=== PATIENT | female | born 1985 | race Caucasian/White ===

== ENCOUNTER → 2018-02-15 | Outpatient (CLI) | payer OTHER | END | disposition home or self-care (01) | LOC: C.LAB 03:29 | DX: Z02.83 Encounter for blood-alcohol and blood-drug test (principal) ==

== ENCOUNTER 2021-10-12 16:33 | Inpatient (IN) ==
[2021-10-12] MEDS ORDERED: SODIUM CHLORIDE 0.9% 1000ML 1,000 ML IV SCH ×2 (16:45→23:06)
--- NOTE | 2021-10-12 17:04 | Emergency Department Note ---
Impression & Plan Dissection of vertebral artery, Blurred vision, Headache ED Provider Note NAME: HEBERT GERMAIN AGE: 36 SEX: F : 1985 ARRIVES VIA: Ambulance INFORMANT: Patient ED PROVIDER(S): Michele Bingham DO CHIEF COMPLAINT: syncope HPI: Patient is a 36-year-old female with no past medical history the presents the ER for syncopal event. Patient notes that she was at work walking out to the sales floor and started feeling dizzy and lightheaded. Next thing she knew she woke up on the floor. Coworker states that she was out for several minutes. When she woke up she knew where she was but was slightly confused. She denies biting her tongue or loss of control of bowel or bladder. Denies any headache or change in vision prior to the event. No chest pain or shortness of breath preceding the incident. She notes that last night she did go out drinking and normally does not do this. She drank more than usual. No belly pain. No dysuria, urgency, or frequency. Currently has her menstrual period. When she woke up she did have a diffuse headache. She has been having right-sided neck pain in the back for the past 2 weeks. Is worse with twisting turning bending. Has been improving. No weakness or numbness in her arms or legs. No other exacerbating remitting factors. She notes that she does have some blurriness of her vision out of her right eye. She did have some in her left eye initially and now switch. ROS: See above HPI for pertinent positives & negatives. A total of 10 systems reviewed and were otherwise negative. PAST MEDICAL HISTORY:See Below PAST SURGICAL HISTORY:See Below FAMILY HISTORY:See Below SOCIAL HISTORY:See Below HOME MEDICATIONS:See Below ALLERGIES:See Below VITALS:See Below PHYSICAL EXAMINATION: GENERAL: Sitting up in bed, alert, well appearing, well nourished, no distress, non-toxic EYE EXAM: normal conjunctiva. PERRL and EOM's grossly intact. OROPHARYNX: no exudate, no erythema, lips, buccal mucosa, and tongue normal and mucous membranes are moist NECK: supple, no nuchal rigidity, no adenopathy, non-tender LUNGS: Clear to auscultation. Normal chest wall mechanics HEART: no murmurs, S1 normal and S2 normal ABDOMEN: abdomen soft, non-tender, normo-active bowel sounds, no masses, no rebound or guarding. BACK: Back is symmetrical on inspection and there is no deformity, no midline tenderness, no CVA tenderness. SKIN: no rashes and no bruising UPPER EXTREMITIES: upper extremities are grossly normal. LOWER EXTREMITIES: No pitting edema. NEURO EXAM: Normal sensorium, cranial nerves II-XII intact, normal speech, no weakness of arms, no weakness of legs. No drift. Finger to nose intact. Gross se nsation intact. MEDICAL DECISION MAKING: Patient is a 28-year-old female who presents the ER for headache and neck pain along with a syncopal episode. IV was established blood was obtained. Labs show no significant leukocytosis or anemia. BMP with mild hypokalemia 3.2. LFTs bilirubin was unremarkable. Troponin was negative. TSH and hCG were negative. Alcohol negative. Covid was negative. CT as well as CTA of the head and neck shows a right vertebral artery dissection. She is completely neurologically intact but did have some blurry vision in the left eye which resolved and now a little bit in her right eye. Discussed with Dr. Ozuna from [facility] neurology. Agrees with aspirin and observation/admission here. Patient was given morphine and Zofran. She was updated bedside. She is given fluids. Discussed with hospitalist admitted for further work-up. Triage Nursing notes reviewed. Limited review of prior medical records performed Vital Signs: reviewed and remarkable for HTN Differential diagnosis: Differential Diagnosis includes but is not limited to ischemic Stroke, hemorrhagic stroke, bells palsy, mass, neoplasm, migraine headache, seizure, subarachnoid hemorrhage, TIA, and transient global amnesia. ER treatment provided: See below Diagnostics interpreted by me: ECG: Sinus rhythm rate 81 Normal axis No PVCs T wave inversion in septal rates Cardiac Monitoring: An order was placed for continuous cardiac monitoring. The monitor shows a rate of 80 with sinus rhythm. Laboratory studies: As stated above and show below. Imaging studies: CT angios the head neck shows dissection Consultation(s): Discussed with neurology as stated above Discussed with hospitalist for further evaluation Dr. Shane Procedures: none Critical Care: None Past Med/Surg History Medical History No pertinent past medical history Social History Smoking Status: Current every day smoker Tobacco Type: Cigarettes Feels Safe at Home: Yes Allergies Allergies Allergy/AdvReac Type Severity Reaction Status Date / Time No Known Allergies Allergy Unknown Unverified 10/12/21 20:03 Home Meds Home Medications Medication Instructions Recorded Confirmed ibuprofen 200 mg tablet 800 mg PO BID PRN 03/11/21 10/12/21 Diarrhea Tab 1 tab PO UD PRN 10/12/21 10/12/21 bismuth subsalicylate 262 mg 2 tab PO QID PRN 10/12/21 10/12/21 chewable tablet (Pepto-Bismol) calcium carbonate 200 mg calcium 400 mg PO BID PRN 10/12/21 10/12/21 (500 mg) chewable tablet (Tums) famotidine 20 mg tablet 20 mg PO DAILY PRN 10/12/21 10/12/21 Results & Data (ED) Vital Signs Vital Signs - 24 hr 10/12/21 16:40 10/12/21 18:35 10/12/21 19:30 Temperature 36.7 C Temperature Source Temporal Artery Scan Pulse Rate 97 H 85 Pulse Rate [Right Finger] 88 Respiratory Rate 18 18 18 Respiratory Effort / Characteristics Non-Labored Spontaneous Respiratory Depth Normal Respiratory Pattern Regular Blood Pressure 150/85 H Blood Pressure [Right Arm] 131/81 Blood Pressure Mean 106 Blood Pressure Mean [Right Arm] 97 Blood Pressure Position Sitting Pulse Oximetry 98 99 98 Oxygen Delivery Method Room Air Room Air Room Air Sepsis Recent Fever Within 48 Hours No Sepsis New/Unexplained Change in Mental Status N/A Sepsis Action Taken by Nursing No Action Required Pulse Oximetry Post Tiitration 98 Laboratory Data Result diagrams: 10/12/21 16:55 10/12/21 16:55 Lab Results 10/12/21 10/12/21 10/12/21 Range/Units 16:55 16:55 16:55 WBC 7.49 (4.8-10.8) K/uL RBC 4.04 L (4.2-5.4) M/uL Hgb 13.2 (12.0-16.0) g/dL Hct 38.8 (37-47) % MCV 96.0 (80-100) fL MCH 32.7 (25-34) pg MCHC 34.0 (32-36) g/dL RDW Std Deviation 43.1 (36.4-46.3) fL RDW Coeff of Carlos 12.2 (11.5-14.5) % Plt Count 277 (130-400) K/uL MPV 11.2 H (7.4-10.4) fL Immature Gran % (Auto) 0.1 % Neut % (Auto) 71.5 % Lymph % (Auto) 19.9 % [place] % (Auto) 6.8 % Eos % (Auto) 1.2 % Baso % (Auto) 0.5 % Neut # (Auto) 5.35 (1.4-6.5) K/uL Lymph # (Auto) 1.49 (1.2-3.4) K/uL [place] # (Auto) 0.51 (0.11-0.59) K/uL Eos # (Auto) 0.09 (0-0.5) K/uL Baso # (Auto) 0.04 (0-0.2) K/uL Immature Gran # (Auto) 0.01 (0.00-0.02) K/uL Sodium 139 (136-145) mmol/L Potassium 3.2 L (3.5-5.1) mmol/L Chloride 104 (98-107) mmol/L Carbon Dioxide 28 (21-32) mmol/L Anion Gap 7.0 (3-11) BUN 18 (7-18) mg/dl Creatinine 0.83 (0.6-1.2) mg/dl Est Cr Clr Drug Dosing 89.4 ml/min Est GFR ( Amer) 103.7 ml/min Est GFR (Non-Af Amer) 89.5 ml/min BUN/Creatinine Ratio 22.0 H (10-20) Glucose 93 (70-99) mg/dl Calcium 9.4 (8.5-10.1) mg/dl Magnesium 2.0 (1.8-2.4) mg/dl Total Bilirubin 0.5 (0.2-1) mg/dl AST 33 (15-37) U/L ALT 48 (12-78) Alkaline Phosphatase 62 (45-117) U/L Troponin I < 0.015 (0-0.045) ng/ml Total Protein 8.3 H (6.4-8.2) gm/dl Albumin 4.2 (3.4-5.0) gm/dl Globulin 4.1 H (2.5-4.0) gm/dl Albumin/Globulin Ratio 1.0 (0.9-2) TSH 1.820 (0.300-4.500) uIu/ml HCG, Qual Negative (Negative) Ethyl Alcohol mg/dL (0-3) mg/dl SARS-CoV-2, RNA, NAAT (NEGATIVE) 10/12/21 10/12/21 Range/Units 17:32 18:50 WBC (4.8-10.8) K/uL RBC (4.2-5.4) M/uL Hgb (12.0-16.0) g/dL Hct (37-47) % MCV (80-100) fL MCH (25-34) pg MCHC (32-36) g/dL RDW Std Deviation (36.4-46.3) fL RDW Coeff of Carlos (11.5-14.5) % Plt Count (130-400) K/uL MPV (7.4-10.4) fL Immature Gran % (Auto) % Neut % (Auto) % Lymph % (Auto) % [place] % (Auto) % Eos % (Auto) % Baso % (Auto) % Neut # (Auto) (1.4-6.5) K/uL Lymph # (Auto) (1.2-3.4) K/uL [place] # (Auto) (0.11-0.59) K/uL Eos # (Auto) (0-0.5) K/uL Baso # (Auto) (0-0.2) K/uL Immature Gran # (Auto) (0.00-0.02) K/uL Sodium (136-145) mmol/L Potassium (3.5-5.1) mmol/L Chloride (98-107) mmol/L Carbon Dioxide (21-32) mmol/L Anion Gap (3-11) BUN (7-18) mg/dl Creatinine (0.6-1.2) mg/dl Est Cr Clr Drug Dosing ml/min Est GFR ( Amer) ml/min Est GFR (Non-Af Amer) ml/min BUN/Creatinine Ratio (10-20) Glucose (70-99) mg/dl Calcium (8.5-10.1) mg/dl Magnesium (1.8-2.4) mg/dl Total Bilirubin (0.2-1) mg/dl AST (15-37) U/L ALT (12-78) Alkaline Phosphatase (45-117) U/L Troponin I (0-0.045) ng/ml Total Protein (6.4-8.2) gm/dl Albumin (3.4-5.0) gm/dl Globulin (2.5-4.0) gm/dl Albumin/Globulin Ratio (0.9-2) TSH (0.300-4.500) uIu/ml HCG, Qual (Negative) Ethyl Alcohol mg/dL < 3.0 (0-3) mg/dl SARS-CoV-2, RNA, NAAT NEGATIVE (NEGATIVE) Administered Medications Discontinued Medications Aspirin (Aspirin 81 Mg Chew) 324 mg PO NOW STA Stop: 10/12/21 20:43 Last Admin: 10/12/21 21:19 Dose: 324 mg Documented by: [id number] Sodium Chloride (Nss 1000ml) 1,000 mls @ 999 mls/hr IV .Q1H1M [place] Stop: 10/12/21 17:45 Last Infusion: 10/12/21 18:25 Dose: 0 mls/hr Documented by: [id number] Admin: 10/12/21 17:02 Dose: 999 mls/hr Documented by: [id number] Ioversol (Optiray 320 125ml) 119 ml IV ONCE ONE Stop: 10/12/21 18:18 Last Admin: 10/12/21 18:20 Dose: 119 ml Documented by: [id number] Morphine Sulfate (Morphine Sulfate 4 Mg/Ml 1 Ml Carp\Vial) 4 mg IV NOW STA Stop: 10/12/21 18:45 Last Admin: 10/12/21 18:51 Dose: 4 mg Documented by: [id number] Ondansetron HCl (Ondansetron Inj 2 Mg/Ml 2 Ml Vial) 4 mg IV NOW STA Stop: 10/12/21 18:45 Last Admin: 10/12/21 18:51 Dose: 4 mg Documented by: [id number] Imaging Data Radiologist's Impression: Chest X-Ray 10/12/21 16:45 XR chest 1V portable HISTORY: syncope COMPARISON: None. FINDINGS: The lungs are clear. Cardiac silhouette is normal in size. No pleural effusions. No pneumothorax. IMPRESSION: No acute process. ACT 112: Negative or not required by law. Electronically signed by: Carlos Henson M.D. 10/12/2021 5:[address] 10/12/21 16:[address] DOSE: HISTORY: syncope, head and neck pain TECHNIQUE: Multiaxial CT images of the head were performed without the use of intravenous contrast. Automated exposure control was utilized for this study. A dose lowering technique was utilized adhering to the principles of ALARA. Comparison: None. Findings: The paranasal sinuses and mastoid air cells are clear. The calvarium and skull base are intact. The ventricles and sulci are within normal limits. There is no mass, hematoma, midline shift, or acute infarct. Impression: No acute intracranial abnormality. ACT 112: Negative or not required by law. Electronically signed by: Carlos Henson M.D. 10/12/2021 6:26 PM Head CTA 10/12/21 17:01 HEAD & NECK CTA HISTORY: syncope r neck pain blurry vision TECHNIQUE: Multiaxial CT images of the head were performed following the intravenous administration of contrast to evaluate the major cerebral vessels. Multiaxial CT images of the neck were also performed following the intravenous administration of contrast to evaluate the major cervical vessels. Maximum intensity projection images were also obtained. A dose lowering technique was utilized adhering to the principles of ALARA. COMPARISON: Head CT 10/12/2021. FINDINGS: There is no mass, hematoma, midline shift, or acute infarct. Visualized intracranial internal carotid arteries, left distal vertebral artery, and basilar artery are widely patent. There is no significant stenosis, occlusion, or aneurysm seen within the bilateral ACAs, MCAs, or separator tender. The major dural venous sinuses appear patent. There is diminished perfusion within the visualized distal right vertebral artery. There is an early proximal bifurcation of the left MCA. This is considered to be a normal variant. The aortic arch and proximal great vessels are widely patent. There is no significant stenosis, occlusion, or dissection identified within the bilateral common carotid or internal carotid arteries. The left vertebral artery is widely patent. Multifocal areas of occlusion seen throughout the majority of the right vertebral artery with a few smaller linear areas of perfusion. This results in severely diminished perfusion within the distal intracranial portion of the right vertebral artery. Therefore, this is consistent with a long segment right vertebral artery dissection with multifocal areas of thrombus/occlusion. IMPRESSION: 1. No significant stenosis, occlusion, or aneurysm within the [place]. 2. No significant stenosis, occlusion, or dissection identified within the carotid arteries. 3. Multifocal areas of occlusion seen throughout the majority of the right vertebral artery with a few smaller linear areas of perfusion. This results in severely diminished perfusion within the distal intracranial portion of the righ t vertebral artery. Therefore, this is consistent with a long segment right vertebral artery dissection with multifocal areas of thrombus/occlusion. ACT 112: Negative or not required by law. Electronically signed by: Carlos Henson M.D. 10/12/2021 6:35 PM Discharge Plan Visit Data Chief Complaint: Syncope ED Provider: Michele Bingham Discharge Problem: Dissection of vertebral artery, Blurred vision, Headache Forms Stand Alone Forms: [employer] Prescriptions Prescriptions: No Action ibuprofen 200 mg Tablet 800 mg PO BID PRN (Reason: Pain) RF: 0 famotidine 20 mg Tablet 20 mg PO DAILY PRN (Reason: Acid Reflux) RF: 0 calcium carbonate [Tums] 200 mg calcium (500 mg) Tablet,Chewable 400 mg PO BID PRN (Reason: gi-upset) RF: 0 bismuth subsalicylate [Pepto-Bismol] 262 mg Tablet,Chewable 2 tab PO QID PRN (Reason: gi-upset) RF: 0 Diarrhea Tab 1 tab PO UD PRN (Reason: Diarrhea) RF: 0 Referrals Referrals: Coretta Smalls PA-C [Primary Care Provider] - Discharge Problem: Headache Qualifiers: Headache type: unspecified Headache chronicity pattern: unspecified pattern Intractability: not intractable Qualified Code(s): R51.9 - Headache, unspecified
[2021-10-12 17:06] LABS: Basophils # (auto) 0.04 K/uL (0-0.2); Basophils % (auto) 0.5 %; Eosinophils # (auto) 0.09 K/uL (0-0.5); Eosinophils % (auto) 1.2 %; Hematocrit (blood only) 38.8 % (37-47); Hemoglobin 13.2 g/dL (12.0-16.0); Immature Granulocytes # (auto) 0.01 K/uL (0.00-0.02); Immature Granulocytes % (auto) 0.1 %; Lymphocytes # (auto) 1.49 K/uL (1.2-3.4); Lymphocytes % (auto) 19.9 %; Mean Corpuscular Hemoglobin 32.7 pg (25-34); Mean Platelet Volume 11.2 fL (7.4-10.4); Monocytes # (auto) 0.51 K/uL (0.11-0.59); Monocytes % (auto) 6.8 %; Neutrophils # (auto) 5.35 K/uL (1.4-6.5); Neutrophils % (auto) 71.5 %; Platelet Count 277 K/uL (130-400); RDW Coefficient of Variation 12.2 % (11.5-14.5); RDW Standard Deviation 43.1 fL (36.4-46.3); Red Blood Count 4.04 M/uL (4.2-5.4); White Blood Count 7.49 K/uL (4.8-10.8)
[2021-10-12 17:30] LABS: Alanine Aminotransferase 48 (12-78); Albumin Level 4.2 gm/dl (3.4-5.0); Aspartate Aminotransferase 33 U/L (15-37); Blood Urea Nitrogen 18 mg/dl (7-18); Calcium 9.4 mg/dl (8.5-10.1); Carbon Dioxide 28 mmol/L (21-32); Chloride 104 mmol/L (98-107); Creatinine Clr Calc Pharmacy 89.4 ml/min; Est GFR (African American) 103.7 ml/min; Est GFR (Non-African American) 89.5 ml/min; Glucose 93 mg/dl (70-99); Potassium 3.2 mmol/L (3.5-5.1); Sodium 139 mmol/L (136-145)
--- NOTE | 2021-10-12 17:40 | XRay Report ---
XR chest 1V portable HISTORY: syncope COMPARISON: None. FINDINGS: The lungs are clear. Cardiac silhouette is normal in size. No pleural effusions. No pneumot horax. IMPRESSION: No acute process. ACT 112: Negative or not required by law. Electronically signed by: Carlos Henson M.D. 10/12/2021 5:39 PM
[2021-10-12 17:41] LABS: Alkaline Phosphatase 62 U/L (45-117); Bilirubin,Total 0.5 mg/dl (0.2-1); Globulin 4.1 gm/dl (2.5-4.0); Total Protein 8.3 gm/dl (6.4-8.2); Troponin I < 0.015 ng/ml (0-0.045)
[2021-10-12 17:49] LABS: Pregnancy Test, Serum Negative (Negative)
[2021-10-12] MEDS ORDERED: OPTIRAY 320 125ml IV ONE (18:17)
--- NOTE | 2021-10-12 18:28 | CT Scan Report ---
HEAD CT NONCONTRAST CT DOSE: HISTORY: syncope, head and neck pain TECHNIQUE: Multiaxial CT images of the head were performed without the use of intravenous contrast. A utomated exposure control was utilized for this study. A dose lowering technique was utilized adheri ng to the principles of ALARA. Comparison: None. Findings: The paranasal sinuses and mastoid air cells are clear. The calvarium and skull base are int act. The ventricles and sulci are within normal limits. There is no mass, hematoma, midline shift, or acute infarct. Impression: No acute intracranial abnormality. ACT 112: Negative or not required by law. Electronically signed by: Carlos Henson M.D. 10/12/2021 6:26 PM
--- NOTE | 2021-10-12 18:36 | CT Scan Report ---
HEAD & NECK CTA HISTORY: syncope r neck pain blurry vision TECHNIQUE: Multiaxial CT images of the head were performed following the intravenous administration o f contrast to evaluate the major cerebral vessels. Multiaxial CT images of the neck were also perform ed following the intravenous administration of contrast to evaluate the major cervical vessels. Maxim um intensity projection images were also obtained. A dose lowering technique was utilized adhering to the principles of ALARA. COMPARISON: Head CT 10/12/2021. FINDINGS: There is no mass, hematoma, midline shift, or acute infarct. Visualized intracranial internal carotid arteries, left distal vertebral artery, and basilar artery are widely patent. There is no significan t stenosis, occlusion, or aneurysm seen within the bilateral ACAs, MCAs, or inside sales specialist. The major dural anya ous sinuses appear patent. There is diminished perfusion within the visualized distal right vertebral artery. There is an early proximal bifurcation of the left MCA. This is considered to be a normal va riant. The aortic arch and proximal great vessels are widely patent. There is no significant stenosis, occ lusion, or dissection identified within the bilateral common carotid or internal carotid arteries. Th e left vertebral artery is widely patent. Multifocal areas of occlusion seen throughout the majority of the right vertebral artery with a few smaller linear areas of perfusion. This results in severely diminished perfusion within the distal intracranial portion of the right vertebral artery. Therefore, this is consistent with a long segment right vertebral artery dissection with multifocal areas of th rombus/occlusion. IMPRESSION: 1. No significant stenosis, occlusion, or aneurysm within the [place]. 2. No significant stenosis, occlusion, or dissection identified within the carotid arteries. 3. Multifocal areas of occlusion seen throughout the majority of the right vertebral artery with a fe w smaller linear areas of perfusion. This results in severely diminished perfusion within the distal intracranial portion of the right vertebral artery. Therefore, this is consistent with a long segment right vertebral artery dissection with multifocal areas of thrombus/occlusion. ACT 112: Negative or not required by law. Electronically signed by: Carlos Henson M.D. 10/12/2021 6:35 PM
[2021-10-12] MEDS ORDERED: MoRPHine SULFATE 4 MG/ML 1 ML CARP\\VIAL IV STA ×2 (18:44→21:39)
[2021-10-12] MEDS ORDERED: ONDANSETRON INJ 2 MG/ML 2 ML VIAL IV STA ×2 (18:44→21:39)
[2021-10-12] MEDS ORDERED: ASPIRIN 81 MG CHEW PO STA (20:42)
[2021-10-12] MEDS ORDERED: ASPIRIN 81 MG ECTAB PO STA (20:42)
[2021-10-12] MEDS ORDERED: POTASSIUM CHLORIDE CRTAB 20 MEQ TABCR PO STA (21:35)
--- NOTE | 2021-10-12 23:05 | History and Physical Report ---
DATE OF ADMISSION: 10/12/2021. CHIEF COMPLAINT: Syncope. HISTORY OF PRESENT ILLNESS: This is a 36-year-old female with past medical history significant for adjustment disorder, depression, currently not on any medications, presents with syncopal episode. The patient at workplace was walking when she suddenly felt ringing in the ears and the next thing she does not know what happened. As per the brother who is in the room, as per her co- workers, she was holding on the shelf and slowly fell down and had some garbled speech for some time and then she was unresponsive for about 7 minutes. There was some mild shaking and twitching during the episode, but no obvious seizure kind of episode. No biting of the tongue, no incontinence. After she woke up, she was confused for 15-20 minutes as per the patient and she was noticed to have double vision. Currently, the double vision is resolved. She is resting comfortably and hemodynamically stable. In the ER, workup with head CTA showed possible right vertebral artery dissection with multifocal areas of thrombus occlusion. Discussed with neurology, recommended MRI scan and aspirin for now. The patient has also ongoing headache and neck pain going on for the last 2 weeks. Currently, the pain is constant. Denies any other problems. No sore throat, no cough, no fever, no shortness of breath. No nausea, no vomiting, no abdominal pain. Normal bowel and bladder movements. No hematuria or blood in the stools or black stools. No swelling in the legs. No rash. She smokes half pack a day for last 20 years. Drinks 6 shots of vodka 4-5 times a week, but she states she can go couple of days without drinking and does not get any withdrawal symptoms. Denies any drug use. ALLERGIES: No known drug allergies. PAST MEDICAL HISTORY: As mentioned above. PAST SURGICAL HISTORY: No surgical history on file. MEDICATIONS: None. FAMILY HISTORY: No significant family history. SOCIAL HISTORY: Smokes half pack a day for 20 years. Drinks alcohol 6 shots of vodka 4-5 times a week. No drug use. REVIEW OF SYSTEMS: As per HPI. Rest of the review of systems is negative. PHYSICAL EXAMINATION: GENERAL: The patient is of moderate build, not in acute distress. VITAL SIGNS: Temperature 36.7, pulse 85, respiratory rate 18, blood pressure 131/81, oxygen 98% on room air. HEENT: Pupils equal, round and reactive to light. Oral mucosa moist. NECK: No JVD, no neck masses. CARDIOVASCULAR: S1 and S2 heard. Regular rate and rhythm. No murmur, no gallop. RESPIRATORY SYSTEM: Normal AP diameter. No accessory muscle use. No wheezing, no crackles. ABDOMEN: Soft, bowel sounds present, nontender, no distention. CENTRAL NERVOUS SYSTEM: Alert and oriented. Speech is clear. No facial droop seen. Power 5/5 in all extremities. Coordination of movements normal. Finger to nose test normal. No pronator drift. Sensation is intact. EXTREMITIES: No edema, no erythema. LABORATORY DATA: WBC 7.4, hemoglobin 13.2, hematocrit 38.8, platelets 277. Sodium 139, potassium 3.2, chloride 104, bicarb 28, BUN 18, creatinine 0.8, serum glucose 93, calcium 9.4, magnesium 2, total bilirubin 0.5, AST 33, ALT 48, alkaline phosphatase 62. Troponin I less than 0.015. TSH is 1.8. HCG negative. Ethyl alcohol less than 3. SARS-CoV-2 RNA negative. IMAGING DATA: CT of the head without contrast, negative study. Chest x-ray, no acute process. CTA of the head and neck, no significant stenosis, occlusion, or aneurysm within the [place], no significant stenosis, occlusion or dissection identified within the carotid arteries. Multifocal areas of occlusion seen throughout the majority of the right vertebral artery with a few small linear areas of perfusion, most likely long segment right vertebral artery dissection with multifocal areas of thrombus occlusion. EKG: Normal sinus rhythm at a rate of 81, no acute ST changes seen. ASSESSMENT AND PLAN: This is a 36-year-old female who presents with presyncope and found to have right vertebral dissection. 1. Syncope: Will check orthostatics. Monitor in the tele. Will get echo. Gentle fluids for now. 2. Right vertebral artery dissection: The patient had some double vision when she came in. Discussed with neurology. Could be incidental finding. Advised to do MRI scan and aspirin. Will consult neurology in the a.m. 3. Deep venous thrombosis prophylaxis: Sequential compression devices. DISPOSITION: Closely monitor in tele floor. Level 1 full code. Expect to discharge home and follow with family doctor. Job ID: [id number] [facility]
[2021-10-12] MEDS ORDERED: NITROGLYCERIN SL 0.4 MG/TAB TAB SL PRN (23:06)
[2021-10-12] MEDS ORDERED: CALCIUM CARBONATE 500 MG CHEWABLE TAB PO PRN ×2 (23:06→23:22)
[2021-10-12] MEDS ORDERED: ONDANSETRON INJ 2 MG/ML 2 ML VIAL IV PRN (23:06)
[2021-10-12] MEDS ORDERED: ACETAMINOPHEN 325 MG TAB PO PRN (23:06)
[2021-10-12] MEDS ORDERED: FAMOTIDINE 20 MG TAB PO PRN (23:06)
[2021-10-12] MEDS ORDERED: HYDROmorphone INJ 0.5 MG/0.5 ML SYR IV PRN (23:06)
[2021-10-13] MEDS ORDERED: FLUARIX QUADRIVALENT 0.5 ML SYR IM ONE (01:15)
[2021-10-13] MEDS: traMADol HCL 50 MG TABLET PO PRN ×2 (02:30→08:01)
[2021-10-13 05:44] LABS: Basophils # (auto) 0.02 K/uL (0-0.2); Basophils % (auto) 0.3 %; Eosinophils # (auto) 0.07 K/uL (0-0.5); Hematocrit (blood only) 35.2 % (37-47); Hemoglobin 11.9 g/dL (12.0-16.0); Immature Granulocytes # (auto) 0.01 K/uL (0.00-0.02); Immature Granulocytes % (auto) 0.1 %; Lymphocytes # (auto) 1.09 K/uL (1.2-3.4); Lymphocytes % (auto) 15.2 %; Mean Corpuscular Hemoglobin 32.3 pg (25-34); Mean Corpuscular Hgb Conc 33.8 g/dL (32-36); Mean Corpuscular Volume 95.7 fL (80-100); Mean Platelet Volume 11.3 fL (7.4-10.4); Monocytes # (auto) 0.48 K/uL (0.11-0.59); Monocytes % (auto) 6.7 %; Neutrophils # (auto) 5.48 K/uL (1.4-6.5); Neutrophils % (auto) 76.7 %; Platelet Count 226 K/uL (130-400); RDW Coefficient of Variation 12.2 % (11.5-14.5); RDW Standard Deviation 42.7 fL (36.4-46.3); Red Blood Count 3.68 M/uL (4.2-5.4); White Blood Count 7.15 K/uL (4.8-10.8)
[2021-10-13 06:17] LABS: BUN Creatinine Ratio 17.7 (10-20); Blood Urea Nitrogen 13 mg/dl (7-18); Calcium 8.6 mg/dl (8.5-10.1); Carbon Dioxide 28 mmol/L (21-32); Chloride 108 mmol/L (98-107); Creatinine Clr Calc Pharmacy 101.6 ml/min; Est GFR (African American) 121.1 ml/min; Est GFR (Non-African American) 104.5 ml/min; Glucose 93 mg/dl (70-99); Magnesium 2.1 mg/dl (1.8-2.4); Potassium 4.1 mmol/L (3.5-5.1); Sodium 138 mmol/L (136-145); Troponin I < 0.015 ng/ml (0-0.045)
[2021-10-13] MEDS: ASPIRIN 81 MG ECTAB PO SCH (08:21)
[2021-10-13 08:39] LABS: Appearance Urine Clear (Clear); Bacteria Urine Automated Negative (Negative); Bilirubin Urine Negative (Negative); Blood Urine 2+ (Negative); Cast Urine Automated 0 /lpf (0-5); Color Urine Yellow; Glucose Urine UA Negative (Negative); Ketones Urine Negative (Negative); Leukocyte Esterase Urine Negative (Negative); Nitrite Urine Negative (Negative); Protein Urine Negative (Negative); Specific Gravity Urine 1.045 (1.000-1.030); Urobilinogen Urine Negative (Negative); pH Urine 5.5 (4.5-7.5)
--- NOTE | 2021-10-13 08:40 | Magnetic Resonance Report ---
MR brain wo/w con CLINICAL HISTORY: Vertebral artery dissection TECHNIQUE: Multiplanar and multisequence MR images of the brain were obtained prior to and following administration of gadolinium contrast. Comparison: None available at the time of this dictation. FINDINGS: No abnormal restricted diffusion is identified. The white matter is unremarkable. The ventricular sys tem is normal in appearance. There is no evidence of acute intraparenchymal hemorrhage. No extra axia l fluid collections are seen. There are no masses, mass effect, or midline shift. No abnormal enhance ment is seen. The corpus callosum, pituitary gland, and cerebellar tonsils appear grossly unremarkab le. Flow voids of the major intracranial arterial vessels are identified apart from the distal cervical s egment of the right vertebral artery secondary to noninclusion.. The imaged portions of the paranasal sinuses, mastoid air cells, and orbits are unremarkable. IMPRESSION: No acute intraparenchymal abnormalities. Redemonstration of right vertebral occlusion. ACT 112: Negative or not required by law. Electronically signed by: Ander Dunlap M.D. 10/13/2021 8:38 AM
[2021-10-13] MEDS: HYDROCODONE/ACETAMOPHEN 5/325MG TAB PO PRN ×3 (12:13→23:21)
--- NOTE | 2021-10-13 13:11 | CT Scan Report ---
CT cervical spine wo con CLINICAL HISTORY: right sided neck pain, r/o fracture, stenosis TECHNIQUE: Multidetector row helical CT of the cervical spine was performed without administration of intravenous contrast. Coronal and sagittal reformations were obtained. Automated dose lowering techn iques and/or adjustment according to patient size were utilized for this exam. Comparison: Comparison is made to CTA neck 07/12/2022 FINDINGS: No acute fractures or subluxations are identified. The alignment is normal. Degenerative changes are seen in the visualized spine. These are most prominent at C5-C6 with moderate bilateral neural forami nal stenosis. Prevertebral soft tissues are unremarkable. IMPRESSION: Mild to moderate degenerative changes with up to moderate bilateral neuroforaminal stenosis. Of note, noncontrast MRI of the neck is more sensitive for evaluation of spinal and neural foraminal stenosis . ACT 112: Negative or not required by law. Electronically signed by: Ander Dunlap M.D. 10/13/2021 1:09 PM
--- NOTE | 2021-10-13 13:45 | Electrocardiogram Report ---
Test Reason : Blood Pressure : / mmHG Vent. Rate : 081 BPM Atrial Rate : 081 BPM P-R Int : 156 ms QRS Dur : 078 ms QT Int : 392 ms P-R-T Axes : 062 044 040 degrees QTc Int : 455 ms Normal sinus rhythm Low voltage QRS Borderline ECG No previous ECGs available Confirmed by Chi Wood ([id number]) on 10/13/2021 1:44:39 PM Referred By: REFERRED SELF Confirmed By:Chi Wood
--- NOTE | 2021-10-13 13:49 | Consultation Report ---
NEUROLOGY CONSULTATION NOTE DATE OF CONSULTATION: 10/13/2021. CHIEF COMPLAINT: Syncope. HISTORY OF PRESENT ILLNESS: A 36-year-old female with a history of depression, currently not on any medications, admitted yesterday from the Emergency Department for a syncopal episode. The syncopal episode occurred at her work. She was walking and felt ringing in her ear and then afterwards, does not remember what happened. The episode was witnessed. Her brother was in the room as well as a coworker. She was holding a shelf and fell down and was noted to have some garbled speech and was unresponsive for roughly 7 minutes. There was some mild shaking and twitching. She did not bite her tongue. She had no incontinence. She was confused afterwards for 15-20 minutes and also noted double vision. The double vision then resolved. She was seen in the Emergency Department and was hemodynamically stable. She underwent CTA head and neck imaging, which showed a right vertebral artery dissection with multifocal areas of thrombus/occlusion. She also had an ongoing headache as well as neck pain for the last 2 weeks. She denies any recent manipulations. No recent trauma other than her recent fall. She is a smoker and smokes half a pack a day. She drinks 6 shots of vodka 4-5 times a week. Denies any drug use. She is not on control. ALLERGIES: No known drug allergies. PAST MEDICAL HISTORY: Adjustment disorder, depression. PAST SURGICAL HISTORY: No recent or pertinent surgeries. MEDICATIONS: None. FAMILY HISTORY: No significant family history. SOCIAL HISTORY: She smokes half a pack of cigarettes per day for 20 years. She drinks alcohol, 6 shots of vodka on average 4-5 times per week. No drug use. REVIEW OF SYSTEMS: Positive for headache, neck pain, syncope. Otherwise, all other review of systems was negative. PHYSICAL EXAMINATION: VITAL SIGNS: Blood pressure 129/65, pulse is 59, respiratory rate is 20, temperature is 36.8 degrees Celsius, oxygen saturation is 96% on room air. GENERAL: The patient appears stated age. She is in no distress. HEENT: Her head is atraumatic and normocephalic. Her eyes are midline. Normal conjunctivae. NECK: Supple. RESPIRATORY: She has normal respiratory effort. CARDIAC: Pulses are normal with a normal sinus rhythm. ABDOMEN: Nondistended, nontender. SKIN: She has no skin rash. PSYCHIATRIC: Normal mood and normal affect. NEUROLOGIC: She is awake, alert, oriented to person, place, and time. Her attention is normal. Knowledge is appropriate. Comprehension is intact. Speech is clear. Visual heaton are full to confrontation. Pupils are symmetric. Facial sensation is intact. Intact hearing. Palate is symmetric. Good shoulder shrug. Tongue is midline. No abrasion noted on her tongue. Gait is stable. She has no tremor or myoclonic jerks. No ataxia with [id number] testing. Sensation is intact to light touch. Muscle tone is normal. Muscle examination: No focal weakness. Reflexes: Toes are downgoing, negative Alicja sign, no ankle clonus. DIAGNOSTIC TESTING AND LABORATORY VALUES: WBC 7.15, hemoglobin 11.9, platelet count 226. Sodium 138, potassium 4.1, chloride 108, carbon dioxide 28, BUN is 13, creatinine 0.73. Urinalysis showed 2+ blood, 5-10 RBCs, 5-10 epithelial cells, negative bacteria. Ethyl alcohol was less than 3. COVID-19 was negative. MRI of the brain with and without contrast: No acute intracranial abnormality. Redemonstration of right vertebral artery occlusion seen on recent CTA. No evidence of acute ischemic stroke. White matter is unremarkable. Ventricular system is normal in appearance. There is no mass, mass effect or midline shift. No abnormal enhancement. CTA head and neck imaging. No significant stenosis, occlusion or aneurysm within the [place] of [place]. No significant stenosis, occlusion or dissection identified within the carotid arteries. Multifocal areas of occlusion seen throughout the majority of the right vertebral artery with a few small linear areas of perfusion. This results in severely diminished perfusion within the distal intracranial portion of the right vertebral artery. Therefore, this is consistent with a long segment right vertebral artery dissection with multifocal areas of thrombosis/occlusion. Chest x-ray showed no acute process. ELECTROCARDIOGRAM: Her EKG showed normal sinus rhythm with a ventricular rate of 81. ASSESSMENT AND PLAN: A 36-year-old woman with a history of chronic smoking, admitted with recent episode of loss of consciousness or presumed syncopal episode with noted right vertebral artery dissection on her CTA of the head and neck. Suspect likely incidental finding, age indeterminate. Risk factors include previous neck manipulation. Although I would favor that this is a chronic finding and not associated with recent syncopal episode. Would recommend starting aspirin 81 mg daily and continuing indefinitely. We will plan a repeat CTA of the head and neck as an outpatient in 3 months. Otherwise, blood pressures are well controlled. We will arrange for a routine EEG as an outpatient. Otherwise, strongly we will need to encourage the patient to stop smoking. Given the vertebral artery dissection would recommend avoiding estrogen or control. In regards to the neck pain/chronic headaches can consider starting Zanaflex 4 mg nightly for a short period of time to see if that helps. Otherwise, the patient can follow up with Neurology on an outpatient basis. Please contact me with any additional questions or concerns. Job ID: [id number] OTTONIEL
--- NOTE | 2021-10-13 15:01 | Hospitalist Progress Note ---
Date of Service October 13, 2021 Assessment & Plan (1) Syncope: (2) Dissection of vertebral artery: Plan: ASSESSMENT AND PLAN: This is a 36-year-old female who presents with presyncope and found to have right vertebral dissection. 1. Syncope: r/o Orthostasis check Ortho VS r/o Neurologic etiology Brain MRI negative for acute process CT A: (+) Vertebral artery dissection ASA 81mg po daily started Neurologist consulted r/o Cardiac etiology, structural HD, Arrhythmia Echo: mod to large Left to Right shunt, patent foramen ovale vs ASD ASA 81mg po daily started will consult Cardiology svc monitor in Telemetry 2. Right vertebral artery dissection: The patient had some double vision when she came in. Discussed with neurology. C per above 3. Deep venous thrombosis prophylaxis: Sequential compression devices. plan of care discussed with patient and her family members via videocall in detail and at length all questions answered they are understanding, agreeable, comfortable with the plan of care Admission and Anticipated Discharge Date Admission Date: October 12, 2021 Subjective ff up for syncope, etc seen resting in bed, comfortable reports 3/10 headache, and r posterior neck pain occasional shooting pain from the right neck no other focal neurologic symptoms denies chest pain, dizziness, palpitations no fever/chills, abdominal pain ,nausea/vomiting, etc no other symptoms Review of Systems Review of Systems: all noted and negative except for above Physical Exam Physical Exam: General- oriented x 3, not in distress, speaks in sentences with no effort or accessory muscle use Head- atraumatic Eyes- PERRL, EOMI, anicteric ENT- oropharynx clear Neck- supple, no JVD, no adenopathy, no thyromegaly; carotids +2/2, no bruits appreciated no tenderness Lungs- clear to auscultation bilaterally, no rales/wheezes Heart- normal rate, regular rhythm; no murmur, no gallop, no rub appreciated Abdomen- normal bowel sounds, nondistended, soft, nontender, no masses or hepatosplenomegaly Extremities- no pretibial edema, no calf tenderness; peripheral pulses intact Neuro- alert, oriented x 3; CN 2-12 grossly intact; motor 5/5 bilaterally;sensation 100% on all extremities except L UE 80%; no other gross focal neurologic deficits Skin- warm & dry Results & Data Results & Data ([place]) Vital Signs (Past 12 Hours) Vital Signs Temp Pulse Pulse Pulse Resp BP Pulse Ox 10/13/21 11:00 36.8 C 59 L 20 129/65 96 10/13/21 08:00 36.9 C 69 16 116/74 98 10/13/21 07:16 67 10/13/21 03:46 36.5 C 71 18 118/72 97 all noted and reviewed including below
[2021-10-14] MEDS: ASPIRIN 81 MG ECTAB PO SCH (08:23)
--- NOTE | 2021-10-14 10:27 | Cardiology Consultation ---
Date of Consultation October 14, 2021 Assessment & Plan (1) PFO (patent foramen ovale): (2) Syncope: (3) Dissection of vertebral artery: I long discussion with the patient regarding the natural history, pathophysiology, and prevalence of patent foramen ovale in the general population. Agree with continuing low-dose aspirin at this time. Neurology input appreciated. No MRI evidence of cerebrovascular accident. Repeat 2D echocardiogram and 6 to 12 months. Etiology of syncope not well defined. Possibly vasovagal in relation to significant cervical and thoracic spinal discomfort. Recommend 14-day ZIO monitor in outpatient setting for further evaluation. Advised to avoid any further manipulation of her C-spine (i.e. chiropractic adjustment) due to evidence of vertebral artery dissection. Further management per neurology. Thank you for allow me to participate in the care of your patient. Outpatient cardiology follow-up in 6 weeks. History of Present Illness Reason for Consultation: PFO, syncope Requesting Physician: Dr. Carvajal Attending Physician: Obey Carvajal MD History of Present Illness 36-year-old female admitted with syncope. 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 She was carrying merchandise to the floor when she became acutely lightheaded and "woozy". Reports neck and thoracic spine discomfort at that time which has been chronic, however, worsening over the past few weeks. She was able to turn around and walk back to the warehouse area where she leaned against a post and then slumped to the floor. Bystanders reported loss of consciousness for up to 7 minutes. Some nonpurposeful movements reported without tonic/clonic activity. No tongue biting or incontinence. Denies any chest discomfort, shortness of breath, or palpitations preceding the episode. Reports a history of near syncope associated with severe menstrual cramps in the past. MRI negative for CVA however a vertebral artery dissection was noted. Neurology eval appreciated. Echocardiogram performed demonstrating preserved LV systolic function. Evidence of a right to left shunt through patent foramen ovale visualized. Aspirin initiated due to vertebral artery dissection. Denies personal history of CVA, TIA, heart failure, diabetes, or hypertension. Reports longstanding history of migraine headache. Today she is noting some "numbness" in her right periocular region. No focal weakness, visual changes, slurred speech, or dysphagia. Allergies Allergy/AdvReac Type Severity Reaction Status Date / Time No Known Allergies Allergy Unknown Unverified 10/12/21 20:03 Home Medications Medication Instructions Recorded Confirmed Type Diarrhea Tab 1 tab PO UD PRN 10/12/21 10/12/21 History bismuth subsalicylate 262 mg 2 tab PO QID PRN 10/12/21 10/12/21 History chewable tablet (Pepto-Bismol) calcium carbonate 200 mg calcium 400 mg PO BID PRN 10/12/21 10/12/21 History (500 mg) chewable tablet (Tums) acetaminophen 325 mg tablet 650 mg PO Q4H PRN #20 tab 10/14/21 Rx aspirin 81 mg tablet,delayed 81 mg PO DAILY #30 tab 10/14/21 Rx release tizanidine 4 mg capsule (Zanaflex) 4 mg PO HS #14 cap 10/14/21 Rx Patient History Medical History No pertinent past medical history Social History Smoking Status: Current every day smoker Tobacco Type: Cigarettes Cigarettes Per Day: 10; Hx Alcohol Use: Yes Alcohol type: hard liquor Hx Substance Use: No Preferred Language: [place] Communication Ability: Effective Green Material Value Added Assessor Required: No Beliefs That Will Affect Care: None marital status: Single Current Living Situation: Alone How many Children do You have: 0 Other Information That Helps Us Care for You: No Feels Safe at Home: Yes Safety Concerns: Feels Safe At This Time Assistive Devices: None Review of Systems Review of Systems: All systems reviewed & are unremarkable except as noted in Subjective Physical Exam Constitutional: well developed and well nourished; no acute distress Respiratory: normal respiratory effort; no respiratory distress, no labored breathing and no retractions Auscultation: lungs clear to auscultation bilaterally; no crackles, no rales, no rhonchi and no wheezes Cardiovascular: Rate/Rhythm: regular rate and regular rhythm Heart Sounds: normal S1 and normal S2; no gallop, no murmur and no cardiac rub Extremities: no edema Gastrointestinal (Abdomen): Inspection/Auscultation: abdomen normal to inspection and normal bowel sounds; abdomen not distended Percussion/Palpation: abdomen soft; abdomen nontender, no guarding and abdomen not rigid Neurologic: CN's II-XI intact bilaterally and moves all extremities; no focal motor deficits Motor/Sensory: no tremor Psychiatric: A+Ox3, euthymic affect Results & Data ([facility]) Vital Signs (Past 12 Hours) Vital Signs Temp Pulse Pulse Pulse Resp BP BP 10/14/21 08:00 36.6 C 60 16 116/61 10/14/21 07:14 56 L 10/14/21 04:35 36.9 C 18 10/13/21 23:16 37.0 C 61 18 113/63 10/13/21 23:03 60 Pulse Ox 10/14/21 08:00 99 10/14/21 07:14 10/14/21 04:35 96 10/13/21 23:16 97 10/13/21 23:03
[2021-10-14] MEDS ORDERED: tiZANidine HCL 4 MG TABLET PO STA (12:20)
--- NOTE | 2021-10-14 12:23 | Hospitalist Progress Note ---
Date of Service October 14, 2021 Assessment & Plan (1) Syncope: (2) Dissection of vertebral artery: Plan: ASSESSMENT AND PLAN: This is a 36-year-old female who presents with presyncope and found to have right vertebral dissection. 1. Syncope: likely Vasovagal etiology occurred in the setting of headache, not feeling well Orthostasis ruled out negative Ortho VS r/o Neurologic etiology Brain MRI negative for acute process CT A: (+) Vertebral artery dissection CT cervical spine: moderate foraminal stenosis ASA 81mg po daily started Neurologist consulted- likely incidental finding continue ASA 81mg po daily repeat CT head in 3 months EEG as outpatient no smoking, control pill or estrogen, chiropractic manipulation no restriction on driving or lifting ff up with Neurologist in 4 weeks Zanaflex at HS refer to Ortho Spine for neck pain, foraminal stenosis r/o Cardiac etiology, structural HD, Arrhythmia Echo: mod to large Left to Right shunt, patent foramen ovale vs ASD ASA 81mg po daily started Cardiology svc consulted- ASA 81mg po daily, Zio patch as outpatient, repeat Echo in 6-12 months, ff up with [employer] in 2 months monitor in Telemetry 2. Right vertebral artery dissection: The patient had some double vision when she came in. Discussed with neurology. per above 3. Deep venous thrombosis prophylaxis: Sequential compression devices. plan of care discussed with patient in detail and at length all questions answered they are understanding, agreeable, comfortable with the plan of care Admission and Anticipated Discharge Date Admission Date: October 12, 2021 Subjective ff up for syncope, etc seen resting in bed, not in distress states she feels fine overall except for mild bifrontal headache, mild numbness on the right periorbital area, some photosensitivity also has r posterior neck pain- chronic no other symptoms states she is ready for discharge today Review of Systems Review of Systems: all noted and negative except for above Physical Exam Physical Exam: General- oriented x 3, not in distress, speaks in sentences with no effort or accessory muscle use Eyes- anicteric Neck- no JVD Lungs- clear breath sounds bilaterally, no rales/wheezes Heart- normal rate, regular rhythm; no murmurs Abdomen- normal bowel sounds, nondistended, soft, nontender Extremities- no pretibial edema, no calf tenderness Neuro- alert, oriented x 3; no gross focal neurologic deficits Skin- warm & dry Results & Data Results & Data ([facility]) Vital Signs (Past 12 Hours) Vital Signs Temp Pulse Pulse Resp BP Pulse Ox 10/14/21 12:10 36.5 C 89 16 100/70 10/14/21 08:00 36.6 C 60 16 116/61 99 10/14/21 07:14 56 L 10/14/21 04:35 36.9 C 18 96 all noted and reviewed including below
--- NOTE | 2021-10-14 13:03 | Discharge Summary ---
Date of Service October 14, 2021 Admission HPI Per Admitting Provider CHIEF COMPLAINT: Syncope. HISTORY OF PRESENT ILLNESS: This is a 36-year-old female with past medical history significant for adjustment disorder, depression, currently not on any medications, presents with syncopal episode. The patient at workplace was walking when she suddenly felt ringing in the ears and the next thing she does not know what happened. As per the brother who is in the room, as per her co-workers, she was holding on the shelf and slowly fell down and had some garbled speech for some time and then she was unresponsive for about 7 minutes. There was some mild shaking and twitching during the episode, but no obvious seizure kind of episode. No biting of the tongue, no incontinence. After she woke up, she was confused for 15-20 minutes as per the patient and she was noticed to have double vision. Currently, the double vision is resolved. She is resting comfortably and hemodynamically stable. In the ER, workup with head CTA showed possible right vertebral artery dissection with multifocal areas of thrombus occlusion. Discussed with neurology, recommended MRI scan and aspirin for now. The patient has also ongoing headache and neck pain going on for the last 2 weeks. Currently, the pain is constant. Denies any other problems. No sore throat, no cough, no fever, no shortness of breath. No nausea, no vomiting, no abdominal pain. Normal bowel and bladder movements. No hematuria or blood in the stools or black stools. No swelling in the legs. No rash. She smokes half pack a day for last 20 years. Drinks 6 shots of vodka 4-5 times a week, but she states she can go couple of days without drinking and does not get any withdrawal symptoms. Denies any drug use. Admission Exam (Per Admitting) Constitutional PHYSICAL EXAMINATION: GENERAL: The patient is of moderate build, not in acute distress. VITAL SIGNS: Temperature 36.7, pulse 85, respiratory rate 18, blood pressure 131/81, oxygen 98% on room air. HEENT: Pupils equal, round and reactive to light. Oral mucosa moist. NECK: No JVD, no neck masses. CARDIOVASCULAR: S1 and S2 heard. Regular rate and rhythm. No murmur, no gallop. RESPIRATORY SYSTEM: Normal AP diameter. No accessory muscle use. No wheezing, no crackles. ABDOMEN: Soft, bowel sounds present, nontender, no distention. CENTRAL NERVOUS SYSTEM: Alert and oriented. Speech is clear. No facial droop seen. Power 5/5 in all extremities. Coordination of movements normal. Finger to nose test normal. No pronator drift. Sensation is intact. EXTREMITIES: No edema, no erythema. Discharge Data Consultations 10/12/21 19:03 ED Decision to Admit Stat 10/13/21 08:00 Consult Neurology Routine 10/13/21 15:04 Consult Cardiology Routine Procedures Performed HEAD & NECK CTA HISTORY: syncope r neck pain blurry vision TECHNIQUE: Multiaxial CT images of the head were performed following the intravenous administration of contrast to evaluate the major cerebral vessels. Multiaxial CT images of the neck were also performed following the intravenous administration of contrast to evaluate the major cervical vessels. Maximum intensity projection images were also obtained. A dose lowering technique was utilized adhering to the principles of ALARA. COMPARISON: Head CT 10/12/2021. FINDINGS: There is no mass, hematoma, midline shift, or acute infarct. Visualized intracranial internal carotid arteries, left distal vertebral artery, and basilar artery are widely patent. There is no significant stenosis, occlusion, or aneurysm seen within the bilateral ACAs, MCAs, or group director. The major dural venous sinuses appear patent. There is diminished perfusion within the visualized distal right vertebral artery. There is an early proximal bifurcation of the left MCA. This is considered to be a normal variant. The aortic arch and proximal great vessels are widely patent. There is no significant stenosis, occlusion, or dissection identified within the bilateral common carotid or internal carotid arteries. The left vertebral artery is widely patent. Multifocal areas of occlusion seen throughout the majority of the right vertebral artery with a few smaller linear areas of perfusion. This results in severely diminished perfusion within the distal intracranial portion of the right vertebral artery. Therefore, this is consistent with a long segment right vertebral artery dissection with multifocal areas of thrombus/occlusion. IMPRESSION: 1. No significant stenosis, occlusion, or aneurysm within the [place]. 2. No significant stenosis, occlusion, or dissection identified within the carotid arteries. 3. Multifocal areas of occlusion seen throughout the majority of the right vertebral artery with a few smaller linear areas of perfusion. This results in severely diminished perfusion within the distal intracranial portion of the right vertebral artery. Therefore, this is consistent with a long segment right vertebral artery dissection with multifocal areas of thrombus/occlusion. ACT 112: Negative or not required by law. Electronically signed by: Carlos Henson M.D. 10/12/2021 6:35 PM MR brain wo/w con CLINICAL HISTORY: Vertebral artery dissection TECHNIQUE: Multiplanar and multisequence MR images of the brain were obtained prior to and following administration of gadolinium contrast. Comparison: None available at the time of this dictation. FINDINGS: No abnormal restricted diffusion is identified. The white matter is unremarkable. The ventricular system is normal in appearance. There is no evidence of acute intraparenchymal hemorrhage. No extra axial fluid collections are seen. There are no masses, mass effect, or midline shift. No abnormal enhancement is seen. The corpus callosum, pituitary gland, and cerebellar tonsils appear grossly unremarkable. Flow voids of the major intracranial arterial vessels are identified apart from the distal cervical segment of the right vertebral artery secondary to noninclusion.. The imaged portions of the paranasal sinuses, mastoid air cells, and orbits are unremarkable. IMPRESSION: No acute intraparenchymal abnormalities. Redemonstration of right vertebral occlusion. ACT 112: Negative or not required by law. Electronically signed by: Ander Dunlap M.D. 10/13/2021 8:[address] cervical spine wo con CLINICAL HISTORY: right sided neck pain, r/o fracture, stenosis TECHNIQUE: Multidetector row helical CT of the cervical spine was performed without administration of intravenous contrast. Coronal and sagittal reformations were obtained. Automated dose lowering techniques and/or adjustment according to patient size were utilized for this exam. Comparison: Comparison is made to CTA neck 07/12/2022 FINDINGS: No acute fractures or subluxations are identified. The alignment is normal. Degenerative changes are seen in the visualized spine. These are most prominent at C5-C6 with moderate bilateral neural foraminal stenosis. Prevertebral soft tissues are unremarkable. IMPRESSION: Mild to moderate degenerative changes with up to moderate bilateral neuroforaminal stenosis. Of note, noncontrast MRI of the neck is more sensitive for evaluation of spinal and neural foraminal stenosis. ACT 112: Negative or not required by law. Electronically signed by: Ander Dunlap M.D. 10/13/2021 1:09 PM Hospital Course (1) Syncope: (2) Dissection of vertebral artery: ASSESSMENT AND PLAN: This is a 36-year-old female who presents with presyncope and found to have right vertebral dissection. 1. Syncope: likely Vasovagal etiology occurred in the setting of headache, not feeling well Orthostasis ruled out negative Ortho VS r/o Neurologic etiology Brain MRI negative for acute process CT A: (+) Vertebral artery dissection CT cervical spine: moderate foraminal stenosis ASA 81mg po daily started Neurologist consulted- likely incidental finding continue ASA 81mg po daily repeat CT head in 3 months EEG as outpatient no smoking, control pill or estrogen, chiropractic manipulation no restriction on driving or lifting ff up with Neurologist in 4 weeks Zanaflex at HS refer to Ortho Spine for neck pain, foraminal stenosis r/o Cardiac etiology, structural HD, Arrhythmia Echo: mod to large Left to Right shunt, patent foramen ovale vs ASD ASA 81mg po daily started Cardiology svc consulted- ASA 81mg po daily, Zio patch as outpatient, repeat Echo in 6-12 months, ff up with Shop Superintendent in 2 months monitor in Telemetry 2. Right vertebral artery dissection: per above 3. Deep venous thrombosis prophylaxis: Sequential compression devices. plan of care discussed with patient in detail and at length all questions answered they are understanding, agreeable, comfortable with the plan of care
--- NOTE | 2021-10-16 10:41 | CT Scan Report ---
HEAD & NECK CTA HISTORY: syncope r neck pain blurry vision TECHNIQUE: Multiaxial CT images of the head were performed following the intravenous administration o f contrast to evaluate the major cerebral vessels. Multiaxial CT images of the neck were also perform ed following the intravenous administration of contrast to evaluate the major cervical vessels. Maxim um intensity projection images were also obtained. A dose lowering technique was utilized adhering to the principles of ALARA. COMPARISON: Head CT 10/12/2021. FINDINGS: There is no mass, hematoma, midline shift, or acute infarct. Visualized intracranial internal carotid arteries, left distal vertebral artery, and basilar artery are widely patent. There is no significan t stenosis, occlusion, or aneurysm seen within the bilateral ACAs, MCAs, or water proofer. The major dural anya ous sinuses appear patent. There is diminished perfusion within the visualized distal right vertebral artery. There is an early proximal bifurcation of the left MCA. This is considered to be a normal va riant. The aortic arch and proximal great vessels are widely patent. There is no significant stenosis, occ lusion, or dissection identified within the bilateral common carotid or internal carotid arteries. Th e left vertebral artery is widely patent. Multifocal areas of occlusion seen throughout the majority of the right vertebral artery with a few smaller linear areas of perfusion. This results in severely diminished perfusion within the distal intracranial portion of the right vertebral artery. Therefore, this is consistent with a long segment right vertebral artery dissection with multifocal areas of th rombus/occlusion. IMPRESSION: 1. No significant stenosis, occlusion, or aneurysm within the [place]. 2. No significant stenosis, occlusion, or dissection identified within the carotid arteries. 3. Multifocal areas of occlusion seen throughout the majority of the right vertebral artery with a fe w smaller linear areas of perfusion. This results in severely diminished perfusion within the distal intracranial portion of the right vertebral artery. Therefore, this is consistent with a long segment right vertebral artery dissection with multifocal areas of thrombus/occlusion. ACT 112: Negative or not required by law. Electronically signed by: Carlos Henson M.D. 10/12/2021 6:35 PM
== END 2021-10-14 14:17 | disposition home or self-care (01) | DRG 300 ==
LOC: ED 16:33 → EDINP 20:41 → 2S 10-13 01:06